=== PATIENT | male | born 1940 ===

== ENCOUNTER → 2019-05-06 | Emergency (ER) | payer OTHER ==
[~2019-05-06] VITALS: Ht 177.8 cm; Wt 126.1 kg
[~2019-05-06] MED LIST: ALLEGRA30 MG PO; ALTACE10 M1 PO; ASA81 MG PO; GLUCOPHAGE XR500 MG PO; NIASPAN500 MG PO; NORVASC5 MG PO; ZIAC 5-6.25 MG1 TAB PO
== END | disposition left against medical advice (07) ==
LOC: ER 12:29
DX: Z53.20 Procedure and treatment not carried out because of patient's decision for unspecified reasons (principal)